=== PATIENT | male | born 1980 | race African-American/Black ===

== ENCOUNTER 2018-01-09 04:34 | Emergency (ER) | payer OTHER ==
[~2018-01-09] VITALS: Ht 185.4 cm; Wt 90.7 kg
--- NOTE | 2018-01-09 04:46 | ED PSYCHIATRIC COMPLAINT ---
See Addendum History of Present Illness General Chief Complaint: Psychiatric Related Complaint Stated Complaint: BIBA +SI Source: patient, EMS Exam Limitations: no limitations Vital Signs & Intake/Output Vital Signs & Intake/Output Vital Signs Date Time Temp Pulse Resp B/P B/P Pulse O2 O2 Flow FiO2 Mean Ox Delivery Rate 01/09 1801 97.6 67 18 115/79 99 Room Air 01/09 1507 97.8 79 18 117/73 98 Room Air 01/09 1318 97.0 61 18 121/78 98 Room Air 01/09 1016 97.3 72 20 109/783 99 Room Air 01/09 1015 97.2 72 20 109/78 01/09 0635 97.0 74 18 131/91 98 Room Air 01/09 0437 97.9 83 18 143/89 99 Room Air Allergies Coded Allergies: NO KNOWN ALLERGIES (12/24/12) Triage Nurses Notes Reviewed? yes Onset: Gradual Duration: day(s): Timing: recent history Severity: moderate Associated Symptoms: suicidal ideation HPI: 37 yo gentleman h/o schizoaffective disorder, presents with alleged suicidal statements. Per the medics, he was having an argument with the girlfriend. He made suicidal statments and she called 911. He denies making suicial statements, doing drugs, but he does share that he was drinking alcohol tonight. He is otherwise well. ([facility],Jeff Hernandez) Reconcile Medications Benztropine Mesylate 1 MG TABLET 1 TAB PO BID PSYCH (Reported) Risperidone 2 MG TABLET 1 TAB PO QPM MENTAL DISORDER (Reported) (Jd Centeno MD) Past History Medical History Any Pertinent Medical History? see below for history Psychiatric: schizo affective disorder Surgical History Surgical History: none Psychosocial History What is your primary language Citizen [place] Family History Hx Contributory? No ([facility],Jeff Hernandez) Review of Systems Review of Systems Constitutional: Reports: no symptoms. EENTM: Reports: no symptoms. Respiratory: Reports: no symptoms. Cardiovascular: Reports: no symptoms. GI: Reports: no symptoms. Genitourinary: Reports: no symptoms. Musculoskeletal: Reports: no symptoms. Skin: Reports: no symptoms. Neurological/Psychological: Reports: no symptoms. Hematologic/Endocrine: Reports: no symptoms. Immunologic/Allergic: Reports: no symptoms. All Other Systems: Reviewed and Negative ([facility],Jeff Hernandez) Physical Exam Physical Exam General Appearance: well developed/nourished, mild distress Head: atraumatic Eyes: Bilateral: PERRL, EOMI. Ears, Nose, Throat: normal pharynx, normal ENT inspection, hearing grossly normal Neck: normal inspection, supple Respiratory: normal breath sounds Cardiovascular: regular rate/rhythm Gastrointestinal: soft, non-tender Extremities: normal range of motion Neurological/Psychiatric: no motor/sensory deficits, awake, calm Appearance/Memory/Insight: appropriate appearance, appropriate insight Behavoir/Eye Contact/Speech: cooperative Thoughts/Hallucinations: no apparent hallucination Skin: intact, normal color, warm/dry SAD PERSONS SAD PERSONS Response Value Male Sex? yes 1 Excessive Ethanol/Drug Use? yes 1 Single//? yes 1 Social Support? has support 0 Total 3 SAD PERSONS Done? yes ([facility],Jeff Hernandez) Progress Differential Diagnosis: bipolar vs schizoaffective vs suicidality vs drug abuse vs other. Plan of Care: Orders Procedure Date/time Status Regular Diet 01/10 B Active Continuous Observation Monitor 01/09 1900 Active Continuous Observation Monitor 01/09 1500 Active Continuous Observation Monitor 01/09 1100 Active Continuous Observation Monitor 01/09 0700 Active Continuous Observation Monitor 01/09 0445 Active URINE DRUG SCREEN FOR ER ONLY 01/09 0445 Complete ETHANOL 01/09 0445 Complete COMPREHENSIVE METABOLIC PANEL 01/09 0445 Complete CBC WITHOUT DIFFERENTIAL 01/09 044 Complete ED CRISIS PSYCH CONSULT 01/09 0445 Active Current Medications Sig/Meg Start time Last Medication Dose Stop Time Status Admin Ibuprofen 800 MG Q6P PRN 01/09 0530 AC 01/09 (Motrin) 0534 Laboratory Tests 01/09/18 0623: Urine Opiates Screen < 100, Methadone Screen < 40, Barbiturate Screen < 60, Ur Phencyclidine Scrn < 6.00, Amphetamines Screen < 100, U Benzodiazepines Scrn < 85, Urine Cocaine Screen < 50, Urine Cannabis Screen < 5.00 01/09/18 0505: Anion Gap 18 H, Estimated GFR > 60, BUN/Creatinine Ratio 7.8, Glucose 101 H, Calcium 9.6, Total Bilirubin 0.5, AST 65 H, ALT 58, Alkaline Phosphatase 55, Total Protein 9.1 H, Albumin 4.9, Globulin 4.2, Albumin/Globulin Ratio 1.2, CBC w Diff NO MAN DIFF REQ, RBC 4.75, MCV 84.3, MCH 27.5, MCHC 32.6 L, RDW 16.1 H, MPV 6.5 L, Gran % 58.1, Lymphocytes % 34.6, Monocytes % 6.4, Eosinophils % 0.5, Basophils % 0.4, Absolute Granulocytes 4.1, Absolute Lymphocytes 2.4, Absolute Monocytes 0.5, Absolute Eosinophils 0, Absolute Basophils 0, Serum Alcohol 333.0 Hand-Off Endorsed To: Jd Centeno MD Endorsed Time: 0700 Pending: consult, labs (Jeff Alicea MD) Hand-Off Endorsed To: Jeff Alicea MD Endorsed Time: 1900 Pending: consult (Jd Centeno MD) Departure Departure Disposition: HOME OR SELF CARE Condition: Stable Clinical Impression Primary Impression: Schizoaffective disorder Secondary Impressions: Alcohol intoxication Referrals: Patient Has No Primary Care Dr (PCP/Family) Departure Forms: Customer Survey General Discharge Information (Jeff Alicea MD)
[2018-01-09 05:16] LABS: ABSOLUTE BASOPHIL COUNT 0 /CUMM (0.0-0.2); ABSOLUTE EOSINOPHIL COUNT 0 /CUMM (0.0-0.7); ABSOLUTE GRANULOCYTE CT 4.1 /CUMM (1.4-6.5); ABSOLUTE LYMPH COUNT 2.4 /CUMM (1.2-3.4); ABSOLUTE MONOCYTE COUNT 0.5 /CUMM (0.10-0.60); BASOPHIL % 0.4 % (0.0-2.0); EOSINOPHIL % 0.5 % (0-5); GRANULOCYTE % 58.1 % (42.2-75.2); MEAN CORPUSCULAR HGB 27.5 PG (27.0-31.0); MEAN CORPUSCULAR HGB CONC 32.6 G/DL (33.0-37.0); MEAN CORPUSCULAR VOLUME 84.3 FL (80.0-94.0); MEAN PLATELET VOLUME 6.5 FL (7.4-10.4); PLATELET COUNT 379 /CUMM (130-400); RBC DISTRIBUTION WIDTH 16.1 % (11.5-14.5); RED BLOOD CELL CT 4.75 /CUMM (4.70-6.10); WHITE BLOOD CELL COUNT 7.1 /CUMM (4.8-10.8)
[2018-01-09] MEDS ORDERED: RISPERIDONE2 M1 PO (07:47)
[2018-01-09] MEDS ORDERED: BENZTROPINE MESY1 M1 PO (07:47)
--- NOTE | 2018-01-09 20:18 | ED PSYCH CRISIS CONSULTATION ---
See Addendum Crisis Consult Basic Assessment Date of Consult: 01/09/18 Responsible Person/Accompanied By: BIBA/self Insurance Authorization: Insurance #1: Insurance name: BALJINDER AGGARWAL Phone number: Policy number: [id number] Group number: Authorization number: ED Provider: Patient's ED Provider: [facility],Jeff Hernandez Primary Care Physician: Patient's PCP: Patient Has No Primary Care Dr PCP's Phone Number: Current Psychiatrist: none/sees therapist "Niyah" in [place] Chief Complaint: Psychiatric Related Complaint Patient's Quote: "She was leaving with my daughter so I called the police" Present Illness: Pt. is a 37yo male BIBA early this morning after his girlfriend called the police. Pt. was also intoxicated with a BAL of 333 at 5:00am. This rigging up man evaluated pt. later in the day after he was no longer intoxicated. Pt. was alert and calm and oriented x 3. Pt. reported that last night, he, his girlfriend and his 12 year old daughter went out to dinner for his daughter's birthday. Pt. reports that he and his girlfriend were going to give his daughter a phone for her birthday. Pt. said that he did not want his daughter to see the phone so that he left it outside in the parking lot in some bushes. Pt. said that when they had finished eating and left the restaurant, he could not find the phone in the bushes. Pt. said that his girlfriend and daughter became angry at him for losing the phone and were going to leave him in the parking lot to look for the phone and so he said he was going to call the police. Pt. says that his girlfriend then let him the car and they all drove home. Pt. said that his daughter and his girlfriend went to sleep in one room and that he went to sleep on the couch. Pt. said that he had a headache and so he took three Advil and dropped the bottle on the floor by accident. Pt. said that at that time his girlfriend came out of the other room and accused him of taking the entire bottle of Advil and then called the police. Pt. said that police arrived and brought him to the ED. Pt. denies that he made any time of suicidal statement. He also denies that he had any thoughts of wanting to hurt himself. He says that he is a little bit depressed because he may lose his job because the company he works for ([employer]) is going out of business. Pt reports that he was last in treatment in April 2017 before he moved from [place] to [place]. Pt. reports that he was seeing a therapist named "Niyah", but could not recall her last name. Pt. said that he was on two psychiatric medications which he cannot remember the names of, but said that he was in treatment for depression, AH's and paranoia. Pt. reports that he stopped taking his medications about two months ago and has not heard any voices or experienced any paranoia in the past 5 or 6 months. When told that his BAL was 333 when he arrived at the ED this morning, pt. said that he had four shots of alcohol last night, but also said that he only usually uses alcohol 3 or 4 times a month. This rigging up man later spoke to pt.'s girlfriend (Ambar) over the phone. Ambar reports that pt. is "an alcoholic" who uses every day and that he was very intoxicated last night after having been drinking all day. Ambar reports that she, pt. and his daughter did go out to eat last night to celebrate pt.'s daughter's birthday, but she reports that pt. had purposely thrown the phone that they were going to give his daughter into the snow outside the restaurant and then denied that he did it. Ambar says that they all went home together and that when they got home, pt. said to her that, "I'm going to sleep forever" and then took a handful of Advil and put them in his mouth. Ambar says that when she told pt. she was going to call the police, he spit the Advil out and then eventually went to bed. Ambar says that somewhere around 5:00am, pt. came into her bedroom and accused her of "touching his daughter" and then started crying. Ambar says that she then called the police who subsequently came to the house with EMS who took pt. to the ED. Ambar says that pt. also has a diagnosis of Schizophrenia and has not been in treatment since last summer. She says that pt. tends to be non-compliant with his medication. She says that pt. has tried to hurt himself before by trying to jump out a window and by "charging at police. She believes that he needs dual diagnosis inpatient treatment at this time. The CSSRS was completed with the patient. Pt's identified risk factors are : previous psychiatric diagnosis and treatement, aborted suicide attempt early this morning, non-compliance with treatment and medications, past suicide attempt, alcohol abuse, highly impulsive behavior and recent stressors of possible loss of job. Pt's identified protective factors are: identifies reason for living (daughter), lives with family and has a responsibility to take care of daughter, has a supportive family and is currently employed. Patient's Address: [address] [place] [address] Other Phone Number: Who Do You Live With? Other (see notes) (girlfriend, daughter) Family/Informants Interviewed: Ambar Zurita (girlfriend) [phone] Allergies - Coded Allergies: NO KNOWN ALLERGIES (12/24/12) Current Medications - Scheduled Medications Benztropine Mesylate 1 MG TABLET 1 TAB PO BID PSYCH #60 (Reported) Entered as Reported by Rowan Roche on 01/09/18 0747 Last Taken: At an unknown date and time Risperidone 2 MG TABLET 1 TAB PO QPM MENTAL DISORDER #60 (Reported) Entered as Reported by Rowan Roche on 01/09/18 0747 Laboratory Results: Laboratory Tests 01/09/18 0623: Urine Opiates Screen < 100, Methadone Screen < 40, Barbiturate Screen < 60, Ur Phencyclidine Scrn < 6.00, Amphetamines Screen < 100, U Benzodiazepines Scrn < 85, Urine Cocaine Screen < 50, Urine Cannabis Screen < 5.00 01/09/18 0505: Anion Gap 18 H, Estimated GFR > 60, BUN/Creatinine Ratio 7.8, Glucose 101 H, Calcium 9.6, Total Bilirubin 0.5, AST 65 H, ALT 58, Alkaline Phosphatase 55, Total Protein 9.1 H, Albumin 4.9, Globulin 4.2, Albumin/Globulin Ratio 1.2, CBC w Diff NO MAN DIFF REQ, RBC 4.75, MCV 84.3, MCH 27.5, MCHC 32.6 L, RDW 16.1 H, MPV 6.5 L, Gran % 58.1, Lymphocytes % 34.6, Monocytes % 6.4, Eosinophils % 0.5, Basophils % 0.4, Absolute Granulocytes 4.1, Absolute Lymphocytes 2.4, Absolute Monocytes 0.5, Absolute Eosinophils 0, Absolute Basophils 0, Serum Alcohol 333.0 (Tala Carballo LCSW) Addendum Note Addendum 01/10/2018, 6:15PM Pt. seen for re-evaluation on eventing shift by this crisis clincian. Pt. was alert and oriented x 3. He appeared to be calm and said that he was doing better than last night. He said that he had spoken to both his mother and his girlfriend and that he was "fine" with being admitted inpatient. Pt. agreed that he needed to get back on his medications and said that he should not have gone off them in the first place. Pt. was informed that there were no available beds tonight and so he would be held over in ED in hopes of being admitted inpatient somewhere tomorrow. Pt. was agreeable with this plan. (Tala Carballo LCSW) Addendum Addendum Crisis reassessment completed- patient presents calm and had good insight into recent events that brought him to hospital. Dr. Neri evaluated patient and decided to restart his medication (see orders). Patient understands plan of care and is receptive to an inpatient admission. This ghost writer spoke to his girlfriend Ambar who expressed serious concerns regarding his drinking. She suggested [facility] as one consideration for dual diagnosis residential treatment. This ghost writer advised current priority is for an inpatient pscyhiatric admission. Patient denies remembering events yesterday and defers to girlfriends reported about the overdose attempt with advil. (Mehdi BOLAÑOS,Nilay) Past History Past Medical History Psychiatric: schizo affective disorder Past Surgical History Surgical History: 1 Psychosocial History Strengths/Capabilities: employed, has supportive girlfriend and family Physical Limitations (Interventions): none known Psychiatric Treatment History Psych Treatment Psychiatric Treatment Yes Inpatient Treatment Yes Outpatient Treatment Yes Location of Treatment outpatient treatment in [place], inpatient treatment at [facility] Reason for Treatment Schizophrenia and Alcohol Abuse Dates of Treatment Last outpatient treatment in April 2017; inpatient in 2014 and in 2016 Response to Treatment Non-compliance with medications Diagnosis by History: Schizophrenia Substance Use/Abuse History Drug Use/Abuse Substances Used/Abused Yes Substance Used/Abused Alcohol First Use unk Last Used last night How much used/taken 4 shots How often daily For how long several years Route of use oral Substance Abuse Treatment Substance Abuse Treatment Past Substance Abuse [place] No Comments: n/a (Tala Carballo LCSW) Current Mental Status Mental Status Orientation: Person, Place, Situation Affect: Appropriate Speech: WNL Neuro-vegetative: Anhedonia Appearance Appearance- Dress/Hygiene: WNL Behaviors Thought Process: WNL Thought Content: WNL Memory: Impaired Insight: Poor SI/HI Risk Assessment Past Suicidal Ideation/Attempts Yes (aborted OD attempt this AM) Current Suicidal Ideation/Att No (pt. denies) Past Homicidal Ideation/Att: No Current Homicidal Ideation/Attempts No Degree of Intent: None Danger To: Self Gravely Disabled: none Risk Factors: access to lethal means, history of suicide atmpts, SA/MH hospitalized, substance abuse, poor impulse control, male, not in treatment currently Lethality Ratin PTSD Checklist PTSD Done? patient declined ED Management Sitter: Yes Restraints: No (Tala Carballo LCSW) DSM5/PS Stressors/Medical Prob Diagnosis' (DSM 5, Stressors, Medical): F20.89 - Schizophrenia; F10.20 - Alcohol Use D/O, severe. Stressors - possibility of upcoming job loss, daughter recently came to live with him. Medical - none. Current GAF: 24 Comments: Pt. had an aborted suicide attempt last night, is abusing alcohol and is non- compliant with treatment. (Tala Carballo LCSW) Departure Disposition Psych Medical Clearance Date: 01/09/18 Medically Cleared at: 1600 Time Started: 1600 Time Ended: 1700 Psychiatrist Consulted: Linsey Neri MD Date Disposition Established: 01/09/18 Time Disposition Established: 170 Plan for Disposition - Modality: Bed Search Facility: TBD Contact: n/a Telephone: n/a Rationale for Disposition: Pt's girlfriend reports that pt. had an aborted suicide attempt last night. Pt. is at risk of harm to self and needs an inpatient admission, however there are no beds in [facility]. As it is too late at night for a transfer, pt. will be held overnight in ED tonight and a bed search will be conducted tomorrow. Type of IP Admission: PEC Additional Instructions: none Referrals Patient Has No Primary Care Dr (PCP/Family) (Tala Carballo LCSW)
--- NOTE | 2018-01-10 20:49 | ED PSYCHIATRIST/APRN CONSULT ---
Psychiatrist/INSURANCE VERIFY REP ED Consult Assessment and Plan: The patient was seen 1:1 after discussion with the crisis clinicians and medical records review. He was brought into the emergency room by ambulance which was called by his girlfriend. Upon arrival he was intoxicated with alcohol. According to the girlfriend's report,he overdosed on medication with intent to kill himself. The patient denies that it was a suicide attempt, nevertheless he does not remember anything from the previous night and says "I cannot say I did not, I do not remember anything". The patient presents as a medium height and weight -[place] male looking older than stated age laying on the stretcher alongside the hallway of the emergency room, in no apparent distress. He was cooperative with the interview. The patient's speech is well articulated, goal directed, average in rate, volume and tone. The patient has good attention and concentration, intact memory, average fund of knowledge and is considered to be of average intelligence The patient denies suicidal/homicidal ideation, auditory/visual hallucinations. He had not been taking his psychiatric medication lovely long time because he was drinking. He reports that he was in treatment for depression and paranoid ideation as well as auditory hallucinations. He said he had been taking "medication which was helpful" did not remember the name of the medication. He says that the medication was helpful for his thinking and that he was doing okay taking it. He has a history of auditory hallucinations, derogatory in type. He has a history of depression and anxiety. Diagnosis: Unspecified depressive disorder, unspecified anxiety disorder, unspecified psychotic disorder. The patient has an alcohol use disorder, severe. Stressors include the possibility that the patient will lose his job (he was working at [employer] and the company is closing),financial difficulties, social isolation, problems with primary support group. Given the severity of the stressors he is under as well as the lack of social support and noncompliance with medications the patient is considered at risk for harming himself, he is gravely disabled, he needs inpatient stabilization. He is agreeable with the plan and gives consent for a bed search (there are no beds in Inpatient Psychiatry) He agreed to resume the medication he used to be on. The patient will start risperidone, Celexa 10 mg for antidepressant and anxiety. He will be reevaluating reevaluated in the morning.
[2018-01-11 16:08] VITALS: BP 125/72
== END 2018-01-11 17:00 | disposition other institution (70) ==
LOC: ERH 04:34
PROVIDERS: Pediatrics
DX: F25.9 Schizoaffective disorder, unspecified (principal); F10.129 Alcohol abuse with intoxication, unspecified
CPT/HCPCS: 80307; G0463; G0480